=== PATIENT | female | born 2000 | race African-American/Black ===

== ENCOUNTER 2024-10-27 19:35 | Emergency (ER) | payer OTHER ==
[~2024-10-27] VITALS: Ht 160 cm; Wt 61.9 kg
[2024-10-27 21:58] LABS: BASO # 0.1 10^3/uL (0.0-0.2); BASO % 0.6 % (0.0-1.0); EOS # 0.1 10^3/uL (0.0-0.5); EOS % 0.6 % (0.0-3.0); HEMATOCRIT 37.5 % (36.0-47.0); HEMOGLOBIN 12.5 g/dl (12.0-15.5); LYMPH # 2.1 10^3/uL (1.5-5.0); LYMPH % 23.5 % (24.0-44.0); MEAN CORPUSCULAR HEMOGLOBIN 29.9 pg (27.0-33.0); MEAN CORPUSCULAR HGB CONC 33.3 g/dl (32.0-36.5); MEAN CORPUSCULAR VOLUME 89.7 fl (80.0-96.0); MONO # 0.6 10^3/uL (0.0-0.8); MONO % 6.7 % (2.0-8.0); NEUTROPHILS % 68.4 % (36.0-66.0); PLATELET COUNT, AUTOMATED 294 10^3/uL (150-450); RED BLOOD COUNT 4.18 10^6/uL (4.00-5.40); WHITE BLOOD COUNT 8.7 10^3/uL (4.0-10.0)
[2024-10-27 22:28] LABS: CK-MB VALUE MASS < 1.0 NG/ML (<3.6)
[2024-10-27 22:30] LABS: ALKALINE PHOSPHATASE 58 U/L (35-104); ALT/SGPT 23 U/L (7.0-40); AST/SGOT 24 U/L (<34); BILIRUBIN,TOTAL 0.6 MG/DL (0.3-1.2); BLOOD UREA NITROGEN 9 MG/DL (9-23); CALCIUM LEVEL 9.1 MG/DL (8.5-10.1); CARBON DIOXIDE LEVEL 23 MMOL/L (20-31); CHLORIDE LEVEL 103 MMOL/L (98-107); CREATININE FOR GFR 0.67 MG/DL (0.55-1.30); GLOMERULAR FILTRATION RATE > 90.0 (>60); GLUCOSE, FASTING 83 MG/DL (60-100); POTASSIUM SERUM 3.9 MMOL/L (3.5-5.1); SODIUM LEVEL 138 MMOL/L (136-145); TOTAL PROTEIN 7.5 G/DL (5.7-8.2)
[2024-10-27 22:31] LABS: CPK CREATINE PHOSPHOKINASE 113 U/L (34-145); MB/CK RELATIVE INDEX 0.88 (< OR =4)
[2024-10-27] MEDS: ONDANSETRON 4MG ORAL DISINTEGRATING TAB PO ONE (23:05)
[2024-10-27] MEDS: PANTOPRAZOLE 40MG TAB PO ONE (23:05)
[2024-10-27] MEDS ORDERED: ONDA-282 PO (23:57)
[2024-10-27] MEDS ORDERED: PROT20TA11 PO (23:57)
[2024-10-28] VITALS: BP 114/71; TEMP 98; O2SAT 100
== END 2024-10-28 00:13 | disposition home or self-care (01) ==
LOC: M ED 19:35
DX: R11.0 Nausea (principal); T51.0X1A Toxic effect of ethanol, accidental (unintentional), initial encounter; Z91.010 Allergy to peanuts; Z79.899 Other long term (current) drug therapy